=== PATIENT | male | born 1950 | race Caucasian/White ===

== ENCOUNTER 2020-06-07 11:21 | Emergency (ER) | payer MEDICARE, BC, SELFPAY ==
[2020-06-07 11:27] VITALS: BP 134/87; PULSE 84; RESP 16; TEMP 36.8; O2SAT 96; BMI 38.4
--- NOTE | 2020-06-07 11:40 | PC.NURSE ---
RT at bedside
--- NOTE | 2020-06-07 11:55 | PC.NURSE ---
Calling [facility] for ENT consult
--- NOTE | 2020-06-07 11:56 | HMH.EDGENADL ---
ED Disposition Clinical Impression: Complication of tracheostomy Qualifiers: Tracheostomy complication: unspecified Qualified Code(s): J95.00 - Unspecified tracheostomy complication Disposition: Home, Self-Care Condition on Discharge: Good Additional Instructions: Follow-up with Dr. Juanjose Fuentes at [facility] ear nose and throat clinic. Call for appointment. Contact Dr. Harris for any difficulty breathing. Referrals: Keo Harris MD [Primary Care Provider] - - Critical Care Critical Care Time: No Attestation: On 06/07/20, the high probability of a clinically significant, sudden or life threatening deterioration of the following system(s) required my full and direct attention, intervention and personal management. The time I documented below is in addition to time spent performing reported procedures but includes the following listed in this critical care notation. Medical Decision Making - Medical Records Medical records reviewed: Yes: I reviewed the patient's medical records. MR Comment: Records reviewed on [facility] portal. Patient was transferred from [facility] emergency department to [facility] on 03/20/2020 admitted and then until 04/18 admitted until 04/18/2020. He had a fall with spinal fracture and required surgical fusion. He has ankylosing spondylitis. He had aspiration pneumonia. He had a tracheostomy placed by ENT on 04/01/2020 he had a follow-up appointment scheduled for 05/03/2020, but failed that appointment. - Caleb Inquiry Pt receiving controlled substance: No - Physician Consults Physician Consulted: Kadeem Time: 12:00 Reason -: Pt condition Comment/Response: per ENT Additional Consult: Magui - Time: 12:08 Reason -: ENT Eval/Care Comment/Response: Leave tracheostomy out. Return to senior living. Have senior living schedule outpatient appointment with Dr. Juanjose Fuentes at ENT clinic. General Adult HPI - General Stated complaint: trach came out Time Seen by Provider: 06/07/20 11:45 - History of Present Illness HPI narrative: The patient is brought in by ambulance from [facility]. He is a new patient to them, just having arrived yesterday from a facility in [place]. He apparently had a tracheostomy when he arrived and was found this morning to have his tracheostomy dislodged. The patient says he does not know when it came out, may be during the night. He denies any difficulty breathing. No complaints at this time. He is speaking normally with good voice. [facility] History - Hepatitis A Screen Attestation statement:: This patient has been screened for Hepatitis A risk factors. I have reviewed the patient's past medical history: Yes ROS Obtained: Yes Systems reviewed as appropriate & no additional complaints - Constitutional Constitutional: Denies fever(s) - Cardiovascular Cardiovascular: Denies chest pain - Respiratory Respiratory: Denies cough, Denies dyspnea Physical Exam - General General appearance: alert, in no apparent distress Comment: Speaking normally. Strong voice. No stridor. Denies shortness of breath and appears to be breathing easily. Good pulse oximetry. - Neck Neck exam: Present: trachea midline, other (Stoma is contracted so that there is no visible hole anymore. No possible way to reinsert a tracheostomy tube.) - Chest Chest inspection: Present: normal inspection, symmetric chest wall rise - Respiratory Respiratory exam: Present: normal lung sounds bilaterally. Absent: respiratory distress - Cardiovascular Cardiovascular exam: Present: regular rate - Abdominal Exam Abdominal exam: Present: soft - Extremities Exam Extremities exam: Present: normal capillary refill, other (heel pads on) - Neurological Exam Neurological exam: Present: alert, CN II-XII intact - Psychiatric Psychiatric exam: Present: normal affect, normal mood - Skin Skin exam: Present: warm, dry.
[2020-06-07 11:57] VITALS: BP 135/79; PULSE 115; O2SAT 93
--- NOTE | 2020-06-07 11:58 | PC.NURSE ---
Dr Hernandez speaking to Dr Quan.
--- NOTE | 2020-06-07 12:41 | PC.NURSE ---
Called [facility] and spoke with nurse providing care for him and advised them that we would not be placing the trach back in because his ostomy had already sealed. spoke with Dr. Kilgore ENT at and he advised to leave it out and he would need to make a follow-up appt with Dr. Fuentes
[2020-06-07 13:32] VITALS: BP 130/70; PULSE 65; RESP 18; TEMP 36.9; O2SAT 95
== END 2020-06-07 13:33 | disposition home or self-care (01) ==
PROVIDERS: Emergency Provider Emergency Medicine; PCP Internal Medicine Adolescent Medicine
DX: J95.00 Unspecified tracheostomy complication (principal)
CPT/HCPCS: 99283

== ENCOUNTER → 2020-06-10 14:23 | Outpatient (REF) | payer MEDICARE, SELFPAY ==
[2020-06-10 14:52] LABS: Basophils # 0.1 K/mm3 (0-0.2); Basophils % 0.7 % (0.1-2.0); Eosinophils # 0.5 K/mm3 (0.0-0.4); Eosinophils % 3.7 % (0.1-12.0); Hematocrit 29.6 % (42.0-52.0); Hemoglobin 8.6 g/dL (14.1-18.0); Lymphocytes # 2.3 K/mm3 (0.7-4.5); Lymphocytes % 18.8 % (10-50); Mean Corpuscular Hemoglobin 24.7 pg (27.0-31.2); Mean Corpuscular Volume 85.2 fl (80-94); Mean Platelet Volume 7.6 fl (7.4-10.4); Monocytes # 0.7 K/mm3 (0.1-1.0); Monocytes % 5.8 % (1.7-9.3); Neutrophils # 8.6 K/mm3 (1.8-7.8); Platelet Count 546 K/mm3 (142-424); Red Blood Count 3.47 M/mm3 (4.60-6.20); Red Cell Distribution Width 16.6 % (11.5-17.5); White Blood Count 12.1 K/mm3 (4.8-10.8)
[2020-06-10 16:59] LABS: Alanine Aminotransferase 41 U/L (12-78); Albumin Level 3.4 g/dl (3.5-5.0); Albumin/Globulin Ratio 0.9 (1.1-1.8); Alkaline Phosphatase 188 U/L (38-126); Anion Gap 12.8 mEq/L (5-15); Aspartate Amino Transferase 32 U/L (17-59); Bilirubin,Total 0.6 mg/dl (0.2-1.3); Blood Urea Nitrogen 59 mg/dl (9-20); Calcium 9.4 mg/dl (8.4-10.2); Carbon Dioxide 32 mmol/L (22.0-30.0); Chloride 95 mmol/L (98-107); Chol/HDL Ratio 6.6 (1-3.5); Cholesterol 119 mg/dl (140-200); Estimated Glomerular Filt Rate 55 ml/min (>60); GFR (African American) 66 ML/MIN (>60); Globulin 3.9 g/dL (1.3-3.2); Glucose 174 mg/dl (74-100); HDL Cholesterol 18 mg/dl (40-60); Potassium 4.8 mmoL/L (3.5-5.1); Sodium 135 mmol/L (136-145); Total Protein,Serum 7.3 g/dl (6.3-8.2); Triglycerides 336 mg/dl (30-150); VLDL Cholesterol 67 mg/dL (0-40)
[2020-06-10 17:20] LABS: Direct LDL Cholesterol 49.21 mg/dL (100-129)
[2020-06-10 17:31] LABS: Thyroid Stimulating Hormone 6.44 uIU/mL (0.465-4.68)
== END ==
LOC: HMH.JM 14:23
PROVIDERS: Visit Provider Nurse Practitioner Family
DX: R79.89 Other specified abnormal findings of blood chemistry (principal); R53.83 Other fatigue
CPT/HCPCS: 80053; 80061; 83036; 84443; 85025

== ENCOUNTER → 2020-06-13 09:34 | Outpatient (CLI) | payer MEDICARE, SELFPAY ==
[2020-06-13 10:07] LABS: Basophils # 0.1 K/mm3 (0-0.2); Basophils % 0.7 % (0.1-2.0); Eosinophils # 0.2 K/mm3 (0.0-0.4); Eosinophils % 2.1 % (0.1-12.0); Hematocrit 26.5 % (42.0-52.0); Hemoglobin 8.2 g/dL (14.1-18.0); Lymphocytes # 1.3 K/mm3 (0.7-4.5); Lymphocytes % 12.9 % (10-50); Mean Corpuscular HGB Conc 30.9 g/dL (31.8-35.4); Mean Corpuscular Hemoglobin 25.1 pg (27.0-31.2); Mean Corpuscular Volume 81.2 fl (80-94); Mean Platelet Volume 6.9 fl (7.4-10.4); Monocytes # 0.5 K/mm3 (0.1-1.0); Monocytes % 5.2 % (1.7-9.3); Neutrophils # 8.2 K/mm3 (1.8-7.8); Neutrophils % 79.1 % (37.0-80.0); Platelet Count 450 K/mm3 (142-424); Red Blood Count 3.26 M/mm3 (4.60-6.20); Red Cell Distribution Width 16.6 % (11.5-17.5); White Blood Count 10.3 K/mm3 (4.8-10.8)
[2020-06-13 10:23] LABS: Chloride 95 mmol/L (98-107); Potassium 4.2 mmoL/L (3.5-5.1); Sodium 134 mmol/L (136-145)
[2020-06-13 10:25] LABS: Alanine Aminotransferase 22 U/L (12-78); Aspartate Amino Transferase 20 U/L (17-59); Blood Urea Nitrogen 48 mg/dl (9-20); Estimated Glomerular Filt Rate 60 ml/min (>60); GFR (African American) 72 ML/MIN (>60)
[2020-06-13 10:26] LABS: Albumin Level 3.2 g/dl (3.5-5.0); Albumin/Globulin Ratio 0.8 (1.1-1.8); Alkaline Phosphatase 163 U/L (38-126); Anion Gap 12.2 mEq/L (5-15); Bilirubin,Total 0.4 mg/dl (0.2-1.3); Calcium 8.7 mg/dl (8.4-10.2); Carbon Dioxide 31 mmol/L (22.0-30.0); Globulin 3.8 g/dL (1.3-3.2); Glucose 139 mg/dl (74-100)
== END ==
PROVIDERS: Visit Provider Nurse Practitioner Family
DX: R79.89 Other specified abnormal findings of blood chemistry (principal)
CPT/HCPCS: 36415; 80053; 85025